=== PATIENT | female | born 1930 | race Caucasian/White ===

== ENCOUNTER 2016-12-31 02:02 | Inpatient (IN) | payer MEDICARE, OTHER ==
[~2016-12-31] VITALS: Ht 162.6 cm; Wt 52.6 kg
[2016-12-31] MEDS ORDERED: ALBUTEROL/IPRATROPIUM 2.5MG/0.5MG, 3 ML NPPB SCH (02:30)
[2016-12-31] MEDS ORDERED: SODIUM CHLORIDE FLUSH 10ML SYR IVF ONE (02:30)
[2016-12-31] MEDS ORDERED: SODIUM CHLORIDE 0.9% 1,000ML IVBOLUS ONE (02:30)
[2016-12-31] MEDS ORDERED: methylPREDNISolone SOD SUCC 125 MG/2 ML IVP ONE (02:30)
[2016-12-31] MEDS ORDERED: methylPREDNISolone SOD SUCC 125 MG/2 ML ONE ×3 (02:34→11:53)
[2016-12-31 02:52] LABS: ASPARTATE AMINO TRANSFERASE 30 U/L (15-37); BLOOD UREA NITROGEN 38 mg/dL (7-18)
[2016-12-31 03:02] LABS: IS PT STATUS REG ER OR PRE ER? YES
[2016-12-31 03:12] LABS: ANISOCYTOSIS 1+; POLYCHROMASIA 1+
[2016-12-31 03:13] LABS: LARGE PLATELETS 1+
[2016-12-31] MEDS ORDERED: FUROSEMIDE 20 MG/2 ML ONE (03:21)
[2016-12-31] MEDS ORDERED: NITROGLYCERIN OINT 2%, 1GM TP ONE ×2 (03:22→03:30)
[2016-12-31] MEDS ORDERED: FUROSEMIDE 20 MG/2 ML IV ONE (03:30)
[2016-12-31] MEDS ORDERED: CLEVIDIPINE 50 ML IV PRN (03:30)
[2016-12-31] MEDS ORDERED: morphine SULFATE 10 MG/ML, 1ML ONE (03:35)
[2016-12-31] MEDS ORDERED: CLEVIDIPINE 50 ML IV ONE (03:36)
[2016-12-31] MEDS ORDERED: morphine SULFATE 10 MG/ML, 1ML IVPush ONE (04:00)
[2016-12-31] MEDS ORDERED: ACETAMINOPHEN 325 MG TABLET PO PRN (04:30)
[2016-12-31] MEDS ORDERED: POLYETHYLENE GLYCOL 17 GM PACKET PO PRN (04:30)
[2016-12-31] MEDS ORDERED: DOCUSATE 100 MG CAPSULE PO PRN (04:30)
[2016-12-31] MEDS ORDERED: methylPREDNISolone SOD SUCC 125 MG/2 ML IVPush SCH ×2 (04:30→12:00)
[2016-12-31] MEDS ORDERED: BISACODYL 10 MG SUPP PR PRN (04:30)
[2016-12-31] MEDS: NICOTINE 14MG/24 HR PATCH.TD24 TD SCH (04:30)
[2016-12-31 04:46] LABS: ABG COLLECTION SITE RIGHT BRACHIAL
[2016-12-31] MEDS ORDERED: ENOXAPARIN 40 MG/0.4 ML ONE (05:40)
[2016-12-31] MEDS ORDERED: NICOTINE 14MG/24 HR PATCH.TD24 ONE ×2 (05:40→07:47)
[2016-12-31] MEDS: ENOXAPARIN 40 MG/0.4 ML SQ SCH (05:56)
[2016-12-31] MEDS: AZITHROMYCIN 500 MG in SODIUM CHLORIDE 0.9% 250 ML IV SCH (06:42)
[2016-12-31] MEDS: INSULIN ASPART 100 UNITS/ML, PEN SQ-INSULIN SCH ×4 (09:23→22:15)
[2016-12-31] MEDS: methylPREDNISolone SOD SUCC 125 MG/2 ML IVPush SCH ×2 (11:58→17:33)
[2016-12-31] MEDS ORDERED: ANAG0.5C PO (14:14)
[2016-12-31] MEDS ORDERED: HYDR500C3 PO (14:14)
[2016-12-31] MEDS ORDERED: [UNRECOGNIZED DRUG - REMARK] MC SCH (15:00)
[2016-12-31] MEDS ORDERED: HYDROXYUREA 500 MG CAPSULE PO SCH (16:00)
[2016-12-31] MEDS ORDERED: ANAGRELIDE 0.5 MG PO SCH (16:00)
[2016-12-31] MEDS: HYDROXYUREA 500 MG CAPSULE PO SCH (17:30)
[2016-12-31 19:47] VITALS: BP 149/53
[2016-12-31] MEDS: ANAGRELIDE 0.5 MG HOMEMEDPO SCH (21:00)
[2017-01-01] MEDS: methylPREDNISolone SOD SUCC 125 MG/2 ML IVPush SCH ×3 (00:14→13:02)
[2017-01-01 01:44] VITALS: BP 167/70
[2017-01-01] MEDS: NICOTINE 14MG/24 HR PATCH.TD24 TD SCH ×2 (04:30→19:33)
[2017-01-01] MEDS: AZITHROMYCIN 500 MG in SODIUM CHLORIDE 0.9% 250 ML IV SCH (05:46)
[2017-01-01] MEDS: ENOXAPARIN 40 MG/0.4 ML SQ SCH (05:47)
[2017-01-01 07:21] VITALS: BP 162/65
[2017-01-01] MEDS: HYDROXYUREA 500 MG CAPSULE PO SCH (09:03)
[2017-01-01] MEDS: INSULIN ASPART 100 UNITS/ML, PEN SQ-INSULIN SCH ×4 (09:04→20:31)
[2017-01-01] MEDS: ANAGRELIDE 0.5 MG HOMEMEDPO SCH ×2 (10:24→16:46)
[2017-01-01 13:18] VITALS: BP 181/66
[2017-01-01 15:32] VITALS: BP 160/56
[2017-01-01] MEDS ORDERED: HYDROXYUREA 500 MG CAPSULE PO ONE (16:00)
[2017-01-01 20:12] VITALS: BP 158/83
[2017-01-02 01:38] VITALS: BP 169/66
[2017-01-02] MEDS: AZITHROMYCIN 500 MG in SODIUM CHLORIDE 0.9% 250 ML IV SCH (05:26)
[2017-01-02] MEDS: ENOXAPARIN 40 MG/0.4 ML SQ SCH (05:26)
[2017-01-02 06:14] LABS: BLOOD UREA NITROGEN 62 mg/dL (7-18)
[2017-01-02 06:58] VITALS: BP 182/71
[2017-01-02] MEDS: AMLODIPINE 5 MG TABLET PO SCH (08:22)
[2017-01-02] MEDS: HYDROXYUREA 500 MG CAPSULE PO SCH (08:24)
[2017-01-02] MEDS: INSULIN ASPART 100 UNITS/ML, PEN SQ-INSULIN SCH ×4 (08:27→20:23)
[2017-01-02] MEDS: ENALAPRILAT 1.25 MG/ML, 2ML IVPush PRN (08:30)
[2017-01-02] MEDS: ANAGRELIDE 0.5 MG HOMEMEDPO SCH ×3 (10:00→20:24)
[2017-01-02] MEDS ORDERED: FUROSEMIDE 20 MG/2 ML IV ONE (11:00)
[2017-01-02 12:04] VITALS: BP 158/56
[2017-01-02] MEDS: FLUTICASONE/VILANTEROL 100-25MCG/INH INH SCH (12:31)
[2017-01-02] MEDS: LISINOPRIL 5 MG TABLET PO SCH (12:31)
[2017-01-02] MEDS ORDERED: ALBU8.5H3 INH (13:50)
[2017-01-02] MEDS ORDERED: AZIT500T77 PO (13:50)
[2017-01-02] MEDS ORDERED: FLUT1AER INH (13:50)
[2017-01-02] MEDS ORDERED: PRED20TA PO (13:50)
[2017-01-02] MEDS ORDERED: FURO20TA3 PO (13:50)
[2017-01-02] MEDS ORDERED: LISI5TAB7 PO (13:50)
[2017-01-02 17:22] VITALS: BP 166/57
[2017-01-02] MEDS: NICOTINE 14MG/24 HR PATCH.TD24 TD SCH (19:14)
[2017-01-02 19:49] VITALS: BP 142/60
[2017-01-03 01:06] VITALS: BP_SYST 164; BP_SYST 171; BP_DIAS 60; BP_DIAS 70
[2017-01-03] MEDS: ENOXAPARIN 40 MG/0.4 ML SQ SCH (05:14)
[2017-01-03 05:43] LABS: BLOOD UREA NITROGEN 44 mg/dL (7-18)
[2017-01-03 06:28] LABS: POIKILOCYTOSIS 1+
[2017-01-03 06:30] LABS: SCHISTOCYTES 1+
[2017-01-03 06:31] LABS: OVALOCYTES 2+
[2017-01-03 06:32] LABS: ANISOCYTOSIS 2+; MICROCYTOSIS 1+; POLYCHROMASIA 1+; SPHEROCYTES 1+
[2017-01-03 06:33] LABS: LARGE PLATELETS 1+
[2017-01-03] MEDS: INSULIN ASPART 100 UNITS/ML, PEN SQ-INSULIN SCH ×3 (07:00→16:21)
[2017-01-03 07:45] VITALS: BP 195/73
[2017-01-03] MEDS: FLUTICASONE/VILANTEROL 100-25MCG/INH INH SCH (08:02)
[2017-01-03] MEDS: ANAGRELIDE 0.5 MG HOMEMEDPO SCH ×2 (08:02→16:00)
[2017-01-03] MEDS: LISINOPRIL 5 MG TABLET PO SCH (08:03)
[2017-01-03] MEDS: AMLODIPINE 5 MG TABLET PO SCH (08:03)
[2017-01-03] MEDS: HYDROXYUREA 500 MG CAPSULE PO SCH (08:05)
[2017-01-03] MEDS ORDERED: FUROSEMIDE 20 MG TABLET PO SCH (09:00)
[2017-01-03] MEDS ORDERED: AZITHROMYCIN 500 MG TABLET PO SCH (09:00)
[2017-01-03] MEDS: ENALAPRILAT 1.25 MG/ML, 2ML IVPush PRN (09:48)
[2017-01-03 11:09] VITALS: BP 176/66
== END 2017-01-03 18:03 | disposition home or self-care (01) | DRG 682 ==
LOC: ED 02:55 → EDIP 03:26 → 4EST 14:49
PROVIDERS: ADMIT Internal Medicine
PROC: 5A09357 Assistance with Respiratory Ventilation, Less than 24 Consecutive Hours, Continuous Positive Airway Pressure (ICD-10-PCS; principal; 2016-12-31)
DX: N17.0 Acute kidney failure with tubular necrosis (principal); J96.21 Acute and chronic respiratory failure with hypoxia; I50.43 Acute on chronic combined systolic (congestive) and diastolic (congestive) heart failure; J44.1 Chronic obstructive pulmonary disease with (acute) exacerbation; E87.2 Acidosis; I16.9 Hypertensive crisis, unspecified; J44.0 Chronic obstructive pulmonary disease with (acute) lower respiratory infection; D47.3 Essential (hemorrhagic) thrombocythemia; D53.9 Nutritional anemia, unspecified; E11.65 Type 2 diabetes mellitus with hyperglycemia; F17.200 Nicotine dependence, unspecified, uncomplicated; G51.0 Bell's palsy; I11.0 Hypertensive heart disease with heart failure; I25.10 Atherosclerotic heart disease of native coronary artery without angina pectoris; J20.9 Acute bronchitis, unspecified; I25.2 Old myocardial infarction; I27.2 Other secondary pulmonary hypertension; T38.0X5A Adverse effect of glucocorticoids and synthetic analogues, initial encounter; Y92.89 Other specified places as the place of occurrence of the external cause; Z79.899 Other long term (current) drug therapy; Z99.81 Dependence on supplemental oxygen; Z90.49 Acquired absence of other specified parts of digestive tract; Z95.0 Presence of cardiac pacemaker; Z71.6 Tobacco abuse counseling
CPT/HCPCS: 36415; 36600; 71010; 80048; 80053; 82607; 82746; 82803; 82947; 82962; 83036; 83605; 83735; 83880; 84145; 84439; 84443; 84484; 85025; 93005; 93306; 96374; 96375; J0456; J1650; J1815; C9248; J1940; J2930; J7030; J7050; J7512